=== PATIENT | female | born 1995 | race Caucasian/White ===

== ENCOUNTER 2018-12-17 09:59 | Inpatient (IN) | payer MEDICAID ==
[2018-12-17] MEDS: LACTATED RINGER'S 1,000 ML IV ×3 (10:32→20:09)
[2018-12-17] MEDS ORDERED: BUTORPHANOL 2 MG INJ IV (11:00)
[2018-12-17] MEDS ORDERED: CARBOPROST 250 MCG INJ IM (11:00)
[2018-12-17] MEDS ORDERED: LIDOCAINE 1% (MPF) 30 ML INJ INJ (11:00)
[2018-12-17] MEDS ORDERED: OXYTOCIN 30 UNITS/LR 500 ML IV (11:00)
[2018-12-17] MEDS ORDERED: IBUPROFEN 600 MG TAB PO (11:00)
[2018-12-17 11:31] LABS: ADD MAN DIFF? NO
[2018-12-17 11:34] LABS: BASOPHIL # 0.1 10^3/ul (0.0-0.1); BASOPHILS % 0.6 % (0.0-2.0); EOSINOPHILS # 0.1 10^3/ul (0.0-0.5); EOSINOPHILS % 1.3 % (0.0-7.0); HEMATOCRIT 37.3 % (37.0-47.0); HEMOGLOBIN 12.7 g/dl (12.0-16.0); LYMPHOCYTES # 2.2 10^3/ul (0.8-2.9); LYMPHOCYTES % 20.3 % (15.0-51.0); MEAN CORPUSCULAR HEMOGLOBIN 29.3 pg (29.0-33.0); MEAN CORPUSCULAR VOLUME 86.1 fl (82.0-101.0); MEAN PLATELET VOLUME 11.1 fl (7.4-10.4); MONOCYTE # 0.7 10^3/ul (0.3-0.9); MONOCYTES % 6.5 % (0.0-11.0); NEUTROPHIL # 7.8 10^3/ul (1.6-7.5); NEUTROPHILS % 70.5 % (39.0-77.0); PLATELET COUNT 219 10^3/UL (140-415); RED BLOOD COUNT 4.33 10^6/ul (4.20-5.40); RED CELL DISTRIBUTION WIDTH 13.1 % (11.5-14.5)
[2018-12-17 11:52] LABS: INR 0.84; PROTIME 11.6 Sec (11.9-14.9); PT RATIO 0.9
[2018-12-17 11:53] LABS: PARTIAL THROMBOPLASTIN TIME 26.9 Sec (23.0-35.0)
[2018-12-17] MEDS: MISOPROSTOL 50 MCG CAPSULE PO ×2 (14:45→21:00)
[2018-12-17 15:03] LABS: RAPID PLASMA REAGIN NONREACTIVE (NR)
[2018-12-17] MEDS ORDERED: FENTAnyl 2MCG/ML-ROPIV 0.2% 100 ML (20:11)
[2018-12-17] MEDS ORDERED: NALOXONE (0.4 MG/ML) INJ IV (21:00)
[2018-12-17] MEDS ORDERED: DIPHENHYDRAMINE 50 MG INJ IV (21:00)
[2018-12-18] MEDS: LACTATED RINGER'S 1,000 ML IV (00:16)
[2018-12-18] MEDS: MISOPROSTOL 50 MCG CAPSULE PO ×2 (01:00→05:00)
[2018-12-18] MEDS: ONDANSETRON 4 MG INJ IV (03:59)
[2018-12-18] MEDS: FENTAnyl 2MCG/ML-ROPIV 0.2% 100 ML BAG EPI (04:29)
[2018-12-18] MEDS: OXYTOCIN 30 UNITS/LR 500 ML IVPB (06:32)
[2018-12-18] MEDS: METHYLERGONOVINE 0.2 MG INJ IM (06:38)
[2018-12-18] MEDS: MISOPROSTOL 200 MCG TAB PR (06:44)
[2018-12-18] MEDS: OXYTOCIN 30 UNITS/LR 500 ML IV ×2 (07:04→08:43)
[2018-12-18] MEDS: CLINDAMYCIN 900 MG/D5W (PMX) 50 ML IVPB ×2 (07:11→17:43)
[2018-12-18] MEDS: ACETAMINOPHEN 325 MG TAB PO (07:12)
[2018-12-18] MEDS: GENTAMICIN 80 MG/NS (PMX) 50 ML IVPB ×2 (08:37→18:02)
[2018-12-18] MEDS ORDERED: MISOPROSTOL 200 MCG TAB PR (09:00)
[2018-12-18] MEDS ORDERED: CLINDAMYCIN 900 MG/D5W (PMX) 50 ML IVPB (09:00)
[2018-12-18] MEDS ORDERED: ACETAMINOPHEN 325 MG TAB PO ×2 (09:00)
[2018-12-18] MEDS ORDERED: OXYTOCIN 30 UNITS/LR 500 ML IV (09:00)
[2018-12-18] MEDS ORDERED: DIPHENHYDRAMINE 25 MG CAP PO (09:00)
[2018-12-18] MEDS ORDERED: ONDANSETRON 4 MG INJ IV (09:00)
[2018-12-18] MEDS ORDERED: ZOLPIDEM 5 MG TAB PO (09:00)
[2018-12-18] MEDS ORDERED: CARBOPROST 250 MCG INJ IM (09:00)
[2018-12-18] MEDS ORDERED: NACL 0.9% 3 ML SYG IV (09:00)
[2018-12-18] MEDS ORDERED: GENTAMICIN 290 MG in SOD CHLORIDE 0.9% 100 ML IVPB (09:00)
[2018-12-18] MEDS ORDERED: METHYLERGONOVINE 0.2 MG INJ IM (09:00)
[2018-12-18 10:18] LABS: HEMATOCRIT 32.1 % (37.0-47.0); HEMOGLOBIN 10.9 g/dl (12.0-16.0)
[2018-12-18 10:37] LABS: ANION GAP 10 (5-13); BLOOD UREA NITROGEN 13 mg/dl (7-20); CALCIUM 9.1 mg/dl (8.4-10.2); CARBON DIOXIDE 21 mmol/L (21-31); CHLORIDE 107 mmol/L (97-110); Estimated GFR > 60 mL/min (>60); GLUCOSE 130 mg/dl (70-220); POTASSIUM 3.6 mmol/L (3.5-5.1); SODIUM 138 mmol/L (135-144)
[2018-12-18] MEDS: IBUPROFEN 600 MG TAB PO ×4 (13:11→23:27)
[2018-12-18] MEDS ORDERED: GENTAMICIN 80 MG/NS (PMX) 50 ML IVPB (14:00)
[2018-12-18] MEDS: LANOLIN HPA 1 PKT TOP (18:17)
[2018-12-18] MEDS: WITCH HAZEL/GLYCERIN PAD PR (18:17)
[2018-12-18] MEDS: SENNA/DOCUSATE NA (8.6MG/50MG) TAB PO ×2 (20:19→20:20)
[2018-12-19] MEDS: CLINDAMYCIN 900 MG/D5W (PMX) 50 ML IVPB (02:07)
[2018-12-19] MEDS: GENTAMICIN 80 MG/NS (PMX) 50 ML IVPB (02:54)
[2018-12-19] MEDS: IBUPROFEN 600 MG TAB PO ×4 (05:13→23:41)
[2018-12-19 05:16] LABS: ADD MAN DIFF? NO
[2018-12-19 05:19] LABS: WHITE BLOOD COUNT 21.7 10^3/ul (4.8-10.8)
[2018-12-19 05:19] LABS: BASOPHIL # 0.1 10^3/ul (0.0-0.1); BASOPHILS % 0.4 % (0.0-2.0); EOSINOPHILS # 0.2 10^3/ul (0.0-0.5); EOSINOPHILS % 1.1 % (0.0-7.0); HEMATOCRIT 26.7 % (37.0-47.0); HEMOGLOBIN 8.9 g/dl (12.0-16.0); LYMPHOCYTES # 2.8 10^3/ul (0.8-2.9); LYMPHOCYTES % 13.1 % (15.0-51.0); MEAN CORPUSCULAR HEMOGLOBIN 29.7 pg (29.0-33.0); MEAN CORPUSCULAR HGB CONC 33.3 g/dl (32.0-37.0); MEAN PLATELET VOLUME 10.5 fl (7.4-10.4); MONOCYTE # 1.2 10^3/ul (0.3-0.9); MONOCYTES % 5.5 % (0.0-11.0); NEUTROPHIL # 16.9 10^3/ul (1.6-7.5); NEUTROPHILS % 78.1 % (39.0-77.0); PLATELET COUNT 167 10^3/UL (140-415); RED CELL DISTRIBUTION WIDTH 13.3 % (11.5-14.5)
[2018-12-19] MEDS: SENNA/DOCUSATE NA (8.6MG/50MG) TAB PO ×2 (08:41→21:28)
[2018-12-19] MEDS: CLINDAMYCIN 300 MG CAP PO ×3 (12:00→23:41)
[2018-12-20 05:05] LABS: ADD MAN DIFF? NO
[2018-12-20 05:16] LABS: BASOPHIL # 0.1 10^3/ul (0.0-0.1); BASOPHILS % 0.5 % (0.0-2.0); EOSINOPHILS # 0.4 10^3/ul (0.0-0.5); EOSINOPHILS % 2.5 % (0.0-7.0); HEMATOCRIT 26.8 % (37.0-47.0); LYMPHOCYTES # 3.1 10^3/ul (0.8-2.9); LYMPHOCYTES % 21.1 % (15.0-51.0); MEAN CORPUSCULAR HEMOGLOBIN 29.9 pg (29.0-33.0); MEAN CORPUSCULAR HGB CONC 33.6 g/dl (32.0-37.0); MEAN PLATELET VOLUME 10.3 fl (7.4-10.4); MONOCYTE # 0.8 10^3/ul (0.3-0.9); MONOCYTES % 5.6 % (0.0-11.0); NEUTROPHIL # 10.1 10^3/ul (1.6-7.5); NEUTROPHILS % 68.7 % (39.0-77.0); PLATELET COUNT 221 10^3/UL (140-415); RED BLOOD COUNT 3.01 10^6/ul (4.20-5.40); RED CELL DISTRIBUTION WIDTH 13.2 % (11.5-14.5)
[2018-12-20 05:16] LABS: WHITE BLOOD COUNT 14.7 10^3/ul (4.8-10.8)
[2018-12-20] MEDS: IBUPROFEN 600 MG TAB PO ×2 (05:29→12:00)
[2018-12-20] MEDS: CLINDAMYCIN 300 MG CAP PO (05:29)
[2018-12-20] MEDS: SENNA/DOCUSATE NA (8.6MG/50MG) TAB PO (09:00)
== END 2018-12-20 13:40 | disposition home or self-care (01) | DRG 806 ==
LOC: OBT 09:59 → MS1 12-18 09:00 → L-D 09:59 → OBT 10:30 → L-D 10:29
PROVIDERS: Obstetrics & Gynecology
PROC: 10E0XZZ Delivery of Products of Conception, External Approach (ICD-10-PCS; principal; 2018-12-18)
PROC: 0KQM0ZZ Repair Perineum Muscle, Open Approach (ICD-10-PCS; 2018-12-18)
DX: O41.1230 Chorioamnionitis, third trimester, not applicable or unspecified (principal); O86.4 Pyrexia of unknown origin following delivery; Z37.0 Single live birth; O75.89 Other specified complications of labor and delivery; O70.1 Second degree perineal laceration during delivery; Z3A.39 39 weeks gestation of pregnancy
CPT/HCPCS: 62319; 80048; 85014; 85018; 85025; 85610; 85730; 86592; 86900; 86901; 90686